=== PATIENT | female | born 1945 | race Caucasian/White ===

== ENCOUNTER 2017-02-26 08:39 | Emergency (ER) | payer MEDICARE ==
[~2017-02-26] VITALS: Ht 157.5 cm; Wt 75.0 kg
[~2017-02-26 08:39] MED LIST: AMANTADINE100 M1 PO; AMANTADINE100 MG PO; AUGMENTIN875TAB PO; BENTYL10 MG PO; CATAPRES0.1 MG PO; CIPRO500 MG PO; CIPROFLOXACIN500 M1 PO; CIPROFLOXACN500 MG PO; CLONIDINE0.1 MG PO; ENALAPRIL20 MG PO; ESTRACE1 MG PO; FLAGYL 500500 MG/100 PO; FLAGYL500 MG PO; HYDRALAZINE100 MG PO; HYDRALAZINE25 MG PO; LEVOTHYROXIN75 MCG PO; METOPROL TAR100 MG PO; SYNTHROID50 MCG PO; XALATAN 0.005%2.5 ML OP; XALATAN0.005 % OS; ZITHROMAX Z-PAK1 TAB PO; ZPAK; ZPAK PO; ZYRTEC-D AL1 OR
[2017-02-26] MEDS ORDERED: MOTRIN400 MG PO (09:15)
[2017-02-26 09:31] VITALS: BP 147/76
== END 2017-02-26 09:46 | disposition home or self-care (01) ==
LOC: ED 08:39
DX: M25.512 Pain in left shoulder (principal); X50.0XXA Overexertion from strenuous movement or load, initial encounter; Y93.89 Activity, other specified; Y92.009 Unspecified place in unspecified non-institutional (private) residence as the place of occurrence of the external cause

== ENCOUNTER 2017-04-02 14:33 | Emergency (ER) | payer MEDICARE ==
[~2017-04-02] VITALS: Ht 157.5 cm; Wt 66.8 kg
[~2017-04-02 14:33] MED LIST changes: +MOTRIN400 MG PO
[2017-04-02 15:33] LABS: INFLUENZA A NONE DETECTED (NONE DETECT); INFLUENZA B NONE DETECTED (NONE DETECT)
[2017-04-02] MEDS ORDERED: ZPAK PO (16:33)
[2017-04-02 16:42] VITALS: BP 163/73
== END 2017-04-02 16:42 | disposition home or self-care (01) ==
LOC: ED 14:33
PROVIDERS: Family Medicine
DX: J06.9 Acute upper respiratory infection, unspecified (principal); I10 Essential (primary) hypertension; E03.9 Hypothyroidism, unspecified; H40.9 Unspecified glaucoma

== ENCOUNTER 2017-07-09 17:49 | Observation (INO) | payer MEDICARE ==
[~2017-07-09] VITALS: Ht 157.5 cm; Wt 69.0 kg
[2017-07-09 20:19] LABS: HEMATOCRIT 38.5 % (37.0-47.0); HEMOGLOBIN 12.2 g/dl (12.0-16.0); IMMATURE GRANULOCYTES 0.5 % (0.0-1.0); MEAN CELL VOLUME 84.8 fL CALC (80.0-100.0); MEAN CORPUSCULAR HGB 26.9 pG CALC (26.0-32.0); MEAN CORPUSCULAR HGB CONC 31.7 g/L CALC (32.0-36.0); NEUT# 5.13 thou/uL (2.00-7.15); RED BLOOD COUNT 4.54 mill/uL (4.20-5.60); RED CELL DISTRI WIDTH 13.2 % (11.5-15.5)
[2017-07-09 20:40] LABS: ALKALINE PHOSPHATASE 129 u/l (38-126); ANION GAP 17 (6-22 (CALC)); BILIRUBIN, TOTAL 0.3 mg/dL (0.0-1.4); BUN 26 mg/dL (8-23); BUN/CREATININE RATIO 17 (12-20 (CALC)); CARBON DIOXIDE 24 mmol/l (22-30); CHLORIDE 107 mmol/l (95-108); CREATININE 1.6 mg/dL (0.5-1.0); GFR 32 ML/MIN (>=60 (CALC)); GFR FOR AFR.AMER. 38 ML/MIN (>=60 (CALC)); SGOT/AST 28 u/l (9-36); SGPT/ALT 32 u/l (11-66); SODIUM 144 mmol/l (137-146); TOTAL PROTEIN 7.2 g/dL (6.3-8.2)
[2017-07-09 20:51] LABS: MYOGLOBIN 75 ng/mL (0 - 62)
[2017-07-09 21:40] VITALS: BP 140/82
[2017-07-09 22:26] LABS: URINE BILIRUBIN - DIPSTICK NEGATIVE (NEGATIVE); URINE BLOOD DIPSTICK NEGATIVE (NEGATIVE); URINE COLOR YELLOW; URINE GLUCOSE - DIPSTICK NEGATIVE (NEGATIVE); URINE KETONE NEGATIVE (NEGATIVE); URINE LEUK ESTERASE NEGATIVE (NEGATIVE); URINE NITRITE - DIPSTICK NEGATIVE (Negative); URINE PH 5.5 (4.5-8.0); URINE PROTEIN - DIPSTICK NEGATIVE (NEG-TRACE); URINE SPECIFIC GRAVITY >=1.030; URINE UROBILINOGEN - DIPSTICK 0.2 E.U./dL (0.2)
[2017-07-09 22:27] LABS: URINE CLARITY CLEAR
[2017-07-09 23:57] VITALS: BP 166/77
[2017-07-10 03:52] VITALS: BP 167/59
[2017-07-10 04:39] VITALS: BP 157/86
[2017-07-10 06:02] LABS: HEMATOCRIT 33.8 % (37.0-47.0); HEMOGLOBIN 10.6 g/dl (12.0-16.0); IMMATURE GRANULOCYTES 0.3 % (0.0-1.0); MEAN CELL VOLUME 86.4 fL CALC (80.0-100.0); MEAN CORPUSCULAR HGB 27.1 pG CALC (26.0-32.0); MEAN CORPUSCULAR HGB CONC 31.4 g/L CALC (32.0-36.0); NEUT# 3.79 thou/uL (2.00-7.15); RED BLOOD COUNT 3.91 mill/uL (4.20-5.60); RED CELL DISTRI WIDTH 13.2 % (11.5-15.5)
[2017-07-10 06:07] LABS: BILIRUBIN, TOTAL 0.3 mg/dL (0.0-1.4); CHOLESTEROL HDL RATIO 4.9 (<4.4 (CALC)); CREATININE 1.4 mg/dL (0.5-1.0); POTASSIUM 4.1 mmol/l (3.5-5.1)
[2017-07-10 06:45] LABS: TSH, 3RD GENERATION 4.59 uIU/mL (0.47 - 4.68)
[2017-07-10 07:29] VITALS: BP 194/89
[2017-07-10 11:05] VITALS: BP 156/89
[2017-07-10 16:36] VITALS: BP 169/76
[2017-07-10] MEDS ORDERED: AMLODIPINE BESYL5 MG PO (18:30)
== END 2017-07-10 18:55 | disposition home or self-care (01) ==
LOC: ED 17:49 → ED-I 21:00 → ED 21:09 → MS2 21:10
PROVIDERS: Emergency Medicine; Internal Medicine Geriatric Medicine; ADMIT Internal Medicine; ATTEND Internal Medicine
DX: I24.9 Acute ischemic heart disease, unspecified (principal); R10.13 Epigastric pain; G89.29 Other chronic pain; R13.10 Dysphagia, unspecified; I10 Essential (primary) hypertension; I25.10 Atherosclerotic heart disease of native coronary artery without angina pectoris; E78.5 Hyperlipidemia, unspecified; K21.9 Gastro-esophageal reflux disease without esophagitis; M19.90 Unspecified osteoarthritis, unspecified site; E03.9 Hypothyroidism, unspecified

== ENCOUNTER → 2018-07-05 | Outpatient (REF) | payer MEDICARE ==
[~2018-07-05] MED LIST changes: +AMLODIPINE BESYL5 MG PO
[2018-07-05 07:52] LABS: HEMATOCRIT 39.2 % (37.0-47.0); HEMOGLOBIN 12.3 g/dl (12.0-16.0); IMMATURE GRANULOCYTES 0.4 % (0.0-5.0); MEAN CELL VOLUME 87.3 fL CALC (80.0-100.0); MEAN CORPUSCULAR HGB 27.4 pG CALC (26.0-32.0); MEAN CORPUSCULAR HGB CONC 31.4 g/L CALC (32.0-36.0); NEUT# 4.11 thou/uL (2.00-7.15); RED BLOOD COUNT 4.49 mill/uL (4.20-5.60); RED CELL DISTRI WIDTH 12.8 % (11.5-15.5)
[2018-07-05 08:20] LABS: ALBUMIN 3.8 g/dL (3.2-5.0); BILIRUBIN, TOTAL 0.5 mg/dL (0.0-1.4); CHOLESTEROL HDL RATIO 7.4 (<4.4 (CALC)); CREATININE 1.3 mg/dL (0.5-1.0); POTASSIUM 4.2 mmol/l (3.5-5.1)
[2018-07-05 08:44] LABS: TSH, 3RD GENERATION 5.27 uIU/mL (0.47 - 4.68)
== END | disposition home or self-care (01) ==
LOC: LAB 07:14
PROVIDERS: ATTEND Internal Medicine Geriatric Medicine
DX: E03.9 Hypothyroidism, unspecified (principal); I10 Essential (primary) hypertension

== ENCOUNTER 2020-06-25 15:45 | Emergency (ER) | payer MEDICARE ==
[~2020-06-25] VITALS: Ht 157.5 cm; Wt 69.0 kg
[2020-06-25] MEDS ORDERED: CLONIDINE0.1 MG PO (16:30)
[2020-06-25] MEDS ORDERED: CHLORTHALIDONE25 MG PO (16:31)
[2020-06-25 17:05] LABS: HEMATOCRIT 40.6 % (37.0-47.0); HEMOGLOBIN 12.9 g/dl (12.0-16.0); IMMATURE GRANULOCYTES 0.7 % (0.0-5.0); MEAN CELL VOLUME 83.4 fL CALC (80.0-100.0); MEAN CORPUSCULAR HGB 26.5 pG CALC (26.0-32.0); MEAN CORPUSCULAR HGB CONC 31.8 g/dL CAL (32.0-36.0); NEUT# 18.48 thou/uL (2.00-7.15); RED BLOOD COUNT 4.87 mill/uL (4.20-5.60); RED CELL DISTRI WIDTH 12.9 % (11.5-15.5)
[2020-06-25 17:25] LABS: ALBUMIN 4.3 g/dL (3.2-5.0); CREATININE 1.5 mg/dL (0.5-1.0); POTASSIUM 3.8 mmol/l (3.5-5.1); TOTAL PROTEIN 7.9 g/dL (6.3-8.2)
[2020-06-25 17:27] LABS: BILIRUBIN, TOTAL 1.1 mg/dL (0.0-1.4)
[2020-06-25 17:36] LABS: ACT PARTIAL THROMBO TIME 27.9 SECONDS (20.0-32.5); INTERNATIONAL NORMALIZED RATIO 1.1 RATIO (0.7-1.3); PROTHROMBIN TIME 10.9 SECONDS (9.0-12.5)
[2020-06-25 17:47] LABS: D-DIMER 1.25 mg/L (0.19-0.60)
[2020-06-25 18:52] LABS: URINE BILIRUBIN - DIPSTICK NEGATIVE (NEGATIVE); URINE BLOOD DIPSTICK SMALL (NEGATIVE); URINE COLOR YELLOW; URINE GLUCOSE - DIPSTICK NEGATIVE (NEGATIVE); URINE KETONE NEGATIVE (NEGATIVE); URINE LEUK ESTERASE NEGATIVE (NEGATIVE); URINE NITRITE - DIPSTICK NEGATIVE (Negative); URINE PH 5.5 (4.5-8.0); URINE PROTEIN - DIPSTICK 30 mg/dL (NEG-TRACE); URINE SPECIFIC GRAVITY 1.025; URINE UROBILINOGEN - DIPSTICK 0.2 E.U./dL (0.2)
[2020-06-25 19:03] LABS: URINE BACTERIA FEW hpf; URINE RBC 0-2 RBC/hpf (0-5); URINE SQUAMOUS EPITHELIAL CELL FEW EPI/hpf (0-FEW)
[2020-06-25] MEDS ORDERED: Levaquin PO (19:29)
[2020-06-25 19:45] VITALS: BP 171/69
== END 2020-06-25 19:45 | disposition left against medical advice (07) ==
LOC: ED 15:45
DX: J18.9 Pneumonia, unspecified organism (principal); R09.02 Hypoxemia; I10 Essential (primary) hypertension; Z91.19 Patient's noncompliance with other medical treatment and regimen; Z20.822 Contact with and (suspected) exposure to COVID-19

== ENCOUNTER 2022-01-14 14:55 | Emergency (ER) | payer MEDICARE ==
[~2022-01-14] VITALS: Ht 154.9 cm; Wt 68.0 kg
[~2022-01-14 14:55] MED LIST changes: +CHLORTHALIDONE25 MG PO; +LATANOPROST0.005 % OS; +Levaquin PO
[2022-01-14 15:34] VITALS: BP 167/70
[2022-01-14 16:00] VITALS: BP 168/80
[2022-01-14 16:31] VITALS: BP 173/69
[2022-01-14 17:00] VITALS: BP 180/87
[2022-01-14 17:21] VITALS: BP 180/87
== END 2022-01-14 17:30 | disposition home or self-care (01) ==
LOC: ED 14:55
DX: S63.91XA Sprain of unspecified part of right wrist and hand, initial encounter (principal); I10 Essential (primary) hypertension; W01.0XXA Fall on same level from slipping, tripping and stumbling without subsequent striking against object, initial encounter; Y92.009 Unspecified place in unspecified non-institutional (private) residence as the place of occurrence of the external cause

== ENCOUNTER 2022-08-11 09:08 | Emergency (ER) | payer MEDICARE ==
[2022-08-11] VITALS (7 sets, daily range): BP systolic 138–170; BP diastolic 52–65
[~2022-08-11] VITALS: Ht 154.9 cm; Wt 64.5 kg
[2022-08-11] MEDS ORDERED: ATORVASTATIN CA10 MG PO (09:29)
== END 2022-08-11 10:49 | disposition home or self-care (01) ==
LOC: ED 09:08
DX: R10.9 Unspecified abdominal pain (principal); I10 Essential (primary) hypertension; Z90.49 Acquired absence of other specified parts of digestive tract; Z90.710 Acquired absence of both cervix and uterus